=== PATIENT | male | born 1950 | race Caucasian/White ===

== ENCOUNTER 2016-05-07 09:47 | Day surgery (SDC) | payer MEDICARE, BC ==
--- NOTE | ~2016-05-07 | EGD ---
EGD REPORT [facility] [address] [id number] NAME: NICOLÁS TEJADA III : [birth year] STATUS : REG [facility] [place] PAT#: [id number] AGE: 65 ADM/REG DATE : 05/07/16 MR#: [id number] REPORT SERV DATE: 05/07/16 DICTATED BY: MICHAEL GOLDSTEIN III DATE: 05/07/16 REPORT STATUS : Draft TRANSCRIBED BY: [facility] DATE: 05/07/16 Endoscopy Center Patient Name: Nicolás Tejada Date of : 1950 Attending MD: MICHAEL GOLDSTEIN III, MD Procedure Date No Time: 05/07/2016 Procedure: Upper GI endoscopy Indications: Dyspepsia, Heartburn Referring MD: JULIÁN BURGESS Medicines: Propofol per Anesthesia Complications: No immediate complications. Procedure: Pre-Anesthesia Assessment: - ASA Grade Assessment: III - A patient with severe systemic disease. After obtaining informed consent, the endoscope was passed under direct vision. Throughout the procedure, the patient's blood pressure, pulse, and oxygen saturations were monitored continuously. The GIF H190 [id number] was introduced through the mouth, and advanced to the third part of duodenum. The upper GI endoscopy was accomplished with ease. The patient tolerated the procedure well. Findings: The examined esophagus was normal. A small hiatus hernia was present. Diffuse mildly erythematous mucosa without bleeding was found in the gastric antrum. Biopsies were taken with a cold forceps for histology. The examined duodenum was normal. Biopsies were taken with a cold forceps for evaluation of celiac disease. Impression: - Normal esophagus. - Hiatus hernia. - Erythematous mucosa in the antrum. Biopsied. - Normal examined duodenum. Biopsied. Recommendation: - Patient has a contact number available for emergencies. The signs and symptoms of potential delayed complications were discussed with the patient. Return to normal activities tomorrow. Written discharge instructions were provided to the patient. - Discharge patient to home. - Return to previous diet. - Follow an antireflux regimen. - Continue present medications. EGD REPORT [address] [place]. [address] NAME: NICOLÁS TEJADA III : [birth year] STATUS : REG [facility]#: [id number] AGE: 65 ADM/REG DATE : 05/07/16 MR#: [id number] REPORT SERV DATE: 05/07/16 DICTATED BY: MICHAEL GOLDSTEIN III DATE: 05/07/16 REPORT STATUS : Draft TRANSCRIBED BY: [email or web address] DATE: 05/07/16 - Await pathology results. Procedure Code(s): --- Professional --- 81399, Esophagogastroduodenoscopy, flexible, transoral; with biopsy, single or multiple Diagnosis Code(s): --- Professional --- K44.9, Diaphragmatic hernia without obstruction or gangrene K31.9, Disease of stomach and duodenum, unspecified K30, Functional dyspepsia R12, Heartburn CPT copyright 2013 [employer]. All rights reserved. The codes documented in this report are preliminary and upon medical transcription radiology review may be revised to meet current compliance requirements. MICHAEL GOLDSTEIN III, MD 05/07/2016 11:47 AM This report has been signed electronically. Number of Addenda: 0 Note Initiated On: 05/07/2016 11:33 AM Scope Withdrawal Time 0 hours 0 minutes 0 seconds [address] [place] [address]
--- NOTE | ~2016-05-07 | EGD ---
EGD REPORT [facility] [address] [id number] NAME: NICOLÁS TEJADA III : 48 [place] [facility] [place] [id number] AGE: 65 ADM/REG DATE : 05/07/16 MR#: [id number] REPORT SERV DATE: 05/07/16 DICTATED BY: MICHAEL GOLDSTEIN III DATE: 05/07/16 REPORT STATUS : Draft [facility]ED [facility]: [facility] DATE: 05/07/16 Endoscopy Center Patient Name: Nicolás Tejada Date of : 1950 Attending MD: MICHAEL GOLDSTEIN III, MD Procedure Date No Time: 05/07/2016 Procedure: Colonoscopy Indications: High risk colon cancer surveillance: Personal history of colonic polyps Referring MD: JULIÁN BURGESS Medicines: Propofol per Anesthesia Complications: No immediate complications. Procedure: Pre-Anesthesia Assessment: - ASA Grade Assessment: III - A patient with severe systemic disease. After I obtained informed consent, the scope was passed under direct vision. Throughout the procedure, the patient's blood pressure, pulse, and oxygen saturations were monitored continuously. The PCF [id number] was introduced through the anus and advanced to the cecum, identified by appendiceal orifice and ileocecal valve. The colonoscopy was performed with ease. The patient tolerated the procedure well. The quality of the bowel preparation was good. Findings: A sessile polyp was found in the sigmoid colon. The polyp was 5 mm in size. The polyp was removed with a cold biopsy forceps. Resection and retrieval were complete. Multiple diverticula were found in the sigmoid colon. Impression: - One 5 mm polyp in the sigmoid colon. Resected and retrieved. - Diverticulosis in the sigmoid colon. Recommendation: - Patient has a contact number available for emergencies. The signs and symptoms of potential delayed complications were discussed with the patient. Return to normal activities tomorrow. Written discharge instructions were provided to the patient. - Discharge patient to home. - Return to previous diet. - Continue present medications. - Await pathology results. EGD REPORT [place] [address] [id number] NAME: NICOLÁS TEJADA III : [birth year] STATUS : REG [facility]#: [id number] AGE: 65 ADM/REG DATE : 05/07/16 MR#: [id number] REPORT SERV DATE: 05/07/16 DICTATED BY: MICHAEL GOLDSTEIN III DATE: 05/07/16 REPORT STATUS : Draft TRANSCRIBED BY: [employer] DATE: 05/07/16 Procedure Code(s): --- Professional --- 61264, Colonoscopy, flexible, proximal to splenic flexure; with biopsy, single or multiple Diagnosis Code(s): --- Professional --- D12.5, Benign neoplasm of sigmoid colon K57.30, Diverticulosis of large intestine without perforation or abscess without bleeding Z86.010, Personal history of colonic polyps CPT copyright 2013 [employer]. All rights reserved. The codes documented in this report are preliminary and upon firer locomotive crane review may be revised to meet current compliance requirements. MICHAEL GOLDSTEIN III, MD 05/07/2016 12:09 PM This report has been signed electronically. Number of Addenda: 0 Note Initiated On: 05/07/2016 11:32 AM Scope Withdrawal Time 0 hours 13 minutes [address] [place], [place] [address] [address]
[~2016-05-07 09:47] MED LIST: ABILIFY10 PO; ABILIFY15 PO; ASA5GR PO; ASAB PO; DIOV160 PO; DIOVAN HCT160 MG/25 PO; DSS PO; ESKALITH PO; FISH-EPA1000 MG PO; FLOMAX4 PO; LITHIUM CARB600 MG PO; OX10 PO; PARNATE10 MG OR; PARNATE10 MG PO; PROTONIX PO; SAM E; SERAX30 MG PO; SEROQUEL1C PO; SEROQUEL300 MG PO; TRAZODONE150 MG PO; TRILEP300 PO; VIT B PO; VITC500 PO; ZOCOR10 PO; ZOCOR20 PO; ZONEGRAN PO; [UNRECOGNIZED DRUG - CODE] PO; [UNRECOGNIZED DRUG - OTHER]
== END 2016-05-07 23:59 | disposition home or self-care (01) ==
LOC: DMU 09:47
PROVIDERS: Internal Medicine Gastroenterology
PROC: 0DBN8ZX Excision of Sigmoid Colon, Via Natural or Artificial Opening Endoscopic, Diagnostic (ICD-10-PCS; 2016-05-07)
PROC: 0DB68ZX Excision of Stomach, Via Natural or Artificial Opening Endoscopic, Diagnostic (ICD-10-PCS; principal; 2016-05-07 11:30)
PROC: 0DB98ZX Excision of Duodenum, Via Natural or Artificial Opening Endoscopic, Diagnostic (ICD-10-PCS; 2016-05-07 11:30)
DX: K63.5 Polyp of colon (principal); K29.50 Unspecified chronic gastritis without bleeding; K57.30 Diverticulosis of large intestine without perforation or abscess without bleeding; K44.9 Diaphragmatic hernia without obstruction or gangrene; I10 Essential (primary) hypertension; G47.33 Obstructive sleep apnea (adult) (pediatric); K21.9 Gastro-esophageal reflux disease without esophagitis; F31.9 Bipolar disorder, unspecified; Z86.010 Personal history of colon polyps; Z88.8 Allergy status to other drugs, medicaments and biological substances
CPT/HCPCS: 88305